=== PATIENT | female | born 1985 | race Asian ===

== ENCOUNTER 2020-04-24 16:44 | Emergency (ER) | payer OTHER ==
[~2020-04-24] VITALS: Ht 160 cm; Wt 62.8 kg
[2020-04-24] MEDS ORDERED: LEVO25TA5 PO (16:56)
--- NOTE | 2020-04-24 17:54 | REP ---
INDICATION: vag bleeding. COMPARISON: None. TECHNIQUE: Transabdominal scanning. The patient declined transvaginal scanning. FINDINGS: Uterine dimensions are somewhat enlarged measured at 10.7 x 5.6 x 6.2 cm. Endometrium measures 1.4 cm. There is a intrauterine small sac-like structure without observable yolk sac or embryonic pole. By mean sac size diameter of 10 mm, this would correspond with a gestational age estimate of 5 weeks 5 days. Neither ovary could be directly visualized. No free fluid is seen. The patient declined transvaginal scanning. IMPRESSION: There is a small 10 mm sac-like structure in the uterine endometrial region which could be an early IUP. No embryonic pole or yolk sac is visible however and viability cannot be confirmed. Findings are somewhat nonspecific. Clinical follow-up and possibly sonographic follow-up may be warranted. 5 week 5 day estimate by mean sac size diameter. <Electronically signed by Tashi Sierra > 04/24/20 [id number]
[2020-04-24 18:10] LABS: BASO # 0.1 10^3/uL (0.0-0.2); BASO % 0.6 % (0.0-1.0); EOS # 0.2 10^3/uL (0.0-0.5); EOS % 1.3 % (0.0-3.0); HEMATOCRIT 40.4 % (36.0-47.0); HEMOGLOBIN 13.4 g/dl (12.0-15.5); LYMPH # 2.5 10^3/uL (1.5-5.0); LYMPH % 19.5 % (24.0-44.0); MEAN CORPUSCULAR HEMOGLOBIN 30.7 pg (27.0-33.0); MEAN CORPUSCULAR HGB CONC 33.2 g/dl (32.0-36.5); MEAN CORPUSCULAR VOLUME 92.7 fl (80.0-96.0); MONO # 0.7 10^3/uL (0.0-0.8); MONO % 5.2 % (0.0-5.0); NEUTROPHILS # 9.2 10^3/uL (1.5-8.5); PLATELET COUNT, AUTOMATED 334 10^3/uL (150-450); RED BLOOD COUNT 4.36 10^6/uL (4.00-5.40); WHITE BLOOD COUNT 12.6 10^3/uL (4.0-10.0)
[2020-04-24 19:18] VITALS: BP 125/80
== END 2020-04-24 19:45 | disposition home or self-care (01) ==
LOC: M ED 16:44
DX: O20.0 Threatened abortion (principal); Z3A.01 Less than 8 weeks gestation of pregnancy; O99.281 Endocrine, nutritional and metabolic diseases complicating pregnancy, first trimester; E03.9 Hypothyroidism, unspecified; Z79.899 Other long term (current) drug therapy

== ENCOUNTER 2020-04-30 08:16 | Emergency (ER) | payer OTHER ==
[~2020-04-30] VITALS: Ht 157.5 cm; Wt 62.7 kg
[~2020-04-30 08:16] MED LIST: LEVO25TA5 PO
[2020-04-30 09:28] LABS: BASO # 0.1 10^3/uL (0.0-0.2); BASO % 0.5 % (0.0-1.0); EOS # 0.1 10^3/uL (0.0-0.5); EOS % 0.6 % (0.0-3.0); HEMOGLOBIN 13.4 g/dl (12.0-15.5); LYMPH # 1.6 10^3/uL (1.5-5.0); LYMPH % 12.8 % (24.0-44.0); MEAN CORPUSCULAR HEMOGLOBIN 30.9 pg (27.0-33.0); MEAN CORPUSCULAR HGB CONC 32.7 g/dl (32.0-36.5); MEAN CORPUSCULAR VOLUME 94.5 fl (80.0-96.0); MONO # 0.5 10^3/uL (0.0-0.8); MONO % 4.3 % (0.0-5.0); NEUTROPHILS # 10.1 10^3/uL (1.5-8.5); NEUTROPHILS % 81.3 % (36.0-66.0); PLATELET COUNT, AUTOMATED 313 10^3/uL (150-450); RED BLOOD COUNT 4.34 10^6/uL (4.00-5.40); WHITE BLOOD COUNT 12.4 10^3/uL (4.0-10.0)
[2020-04-30 10:08] LABS: ALBUMIN 4.1 GM/DL (3.2-5.2); ALT/SGPT 23 U/L (12-78); BILIRUBIN,DIRECT < 0.1 MG/DL (0.0-0.2); BILIRUBIN,TOTAL 0.3 MG/DL (0.2-1.0); BLOOD UREA NITROGEN 10 MG/DL (7-18); CARBON DIOXIDE LEVEL 26 MEQ/L (21-32); CHLORIDE LEVEL 104 MEQ/L (98-107); GLOMERULAR FILTRATION RATE > 60.0 (>60); GLUCOSE, FASTING 107 MG/DL (70-100); HCG, SERUM QUANTITATIVE 6071 MIU/ML; LIPASE 101 U/L (73-393); POTASSIUM SERUM 3.8 MEQ/L (3.5-5.1); SODIUM LEVEL 137 MEQ/L (136-145); TOTAL PROTEIN 7.7 GM/DL (6.4-8.2)
--- NOTE | 2020-04-30 10:14 | REP ---
INDICATION: VAGINAL BLEEDING. COMPARISON: 04/24/2020.. TECHNIQUE: Multiple real-time ultrasonographic images. Patient declined endovaginal imaging. FINDINGS: The uterus is anteverted and upper normal size measuring 9.6 x 4.6 x 6.0 cm. There is a gestational sac like structure in the lower uterine segment with an unusual shape. There is no identifiable yolk sac or pole. This may represent spontaneous in progress. Follow-up is recommended. The right ovary could not be identified. The left ovary is normal size measuring 2.0 x 1.4 x 1.3 cm. There is no dominant left ovarian mass or cyst. There is no free fluid in the pelvis. IMPRESSION: Irregular sac-like structure in the lower uterine segment without an identifiable pole or yolk sac. This may possibly represent spontaneous in progress. Follow-up is recommended. <Electronically signed by Nicholas Javier > 04/30/20 [id number]
[2020-04-30] MEDS ORDERED: ACETAMINOPHEN 500 MG TAB PO ONE (11:15)
[2020-04-30] MEDS ORDERED: KETOROLAC 30 MG/ML 1ML VIAL IV ONE (12:30)
[2020-04-30 13:51] VITALS: BP 108/63
== END 2020-04-30 14:01 | disposition home or self-care (01) ==
LOC: M ED 08:16
DX: O03.9 Complete or unspecified spontaneous abortion without complication (principal); Z3A.01 Less than 8 weeks gestation of pregnancy; E03.9 Hypothyroidism, unspecified; Z79.890 Hormone replacement therapy
CPT/HCPCS: 76801; 80048; 80076; 81001; 83690; 84702; 85025; 86901; 88233; 88262; 88291; 88305; 96374; 99284; J1885

== ENCOUNTER 2020-07-26 09:35 | Emergency (ER) | payer OTHER ==
[~2020-07-26] VITALS: Ht 157.5 cm; Wt 65.0 kg
[2020-07-26 10:24] LABS: HEMATOCRIT 40.5 % (36.0-47.0); HEMOGLOBIN 13.4 g/dl (12.0-15.5); MEAN CORPUSCULAR HEMOGLOBIN 30.8 pg (27.0-33.0); MEAN CORPUSCULAR HGB CONC 33.1 g/dl (32.0-36.5); MEAN CORPUSCULAR VOLUME 93.1 fl (80.0-96.0); PLATELET COUNT, AUTOMATED 306 10^3/uL (150-450); RED BLOOD COUNT 4.35 10^6/uL (4.00-5.40)
[2020-07-26 10:54] LABS: HCG, SERUM QUALITATIVE POSITIVE (NEGATIVE)
--- NOTE | 2020-07-26 11:07 | REP ---
INDICATION: VB/8wkpregr/o ectopic COMPARISON: None. TECHNIQUE: Transabdominal 1st trimester obstetrical ultrasound. FINDINGS: Anteverted uterus measures 9.4 x 5.5 x 5.7 cm and the endometrial complex demonstrates decidual reaction to 17 mm thickness. A gestational sac is identified in the lower uterine segment without pole or yolk sac. Mean sac diameter of 7 mm corresponds to 5 weeks 2 days gestational age. Bilateral maternal ovaries are normal in appearance. No pelvic fluid or adnexal mass lesion identified. IMPRESSION: Findings as described suggest early versus possible spontaneous in progress given the patient's associated vaginal bleeding. Less likely ectopic cannot definitively be excluded. Correlation with serial HCG levels and repeat ultrasound as necessary. <Electronically signed by Reynaldo Bolanos > 07/26/20 [id number]
[2020-07-26 11:21] VITALS: BP 108/68
[2020-07-26 12:01] LABS: HCG, SERUM QUANTITATIVE 3716 MIU/ML
== END 2020-07-26 11:29 | disposition home or self-care (01) ==
LOC: M ED 09:35
DX: O20.0 Threatened abortion (principal); Z3A.01 Less than 8 weeks gestation of pregnancy; O99.281 Endocrine, nutritional and metabolic diseases complicating pregnancy, first trimester; E07.9 Disorder of thyroid, unspecified; Z79.890 Hormone replacement therapy

== ENCOUNTER 2023-12-01 07:17 | Day surgery (SDC) | payer OTHER ==
[~2023-12-01] VITALS: Ht 160 cm; Wt 65.3 kg
[~2023-12-01 07:17] MED LIST changes: +PRENTAB53 PO; +SYNT75TA PO
[2023-12-01 07:43] LABS: HEMOGLOBIN 12.9 g/dl (12.0-15.5)
[2023-12-01] MEDS ORDERED: propofoL 200 MG/20 ML VIAL As Ordered ONE (08:03)
[2023-12-01] MEDS: LR 1,000 ML IV SCH (08:03)
[2023-12-01] MEDS ORDERED: ONDANSETRON 4MG 2ML VIAL As Ordered ONE (08:03)
[2023-12-01] MEDS ORDERED: LIDOCAINE 2% 100MG/5ML SDV (FOR ANES.) As Ordered ONE (08:03)
[2023-12-01] MEDS ORDERED: fentaNYL 100 MCG/2 ML INJECTION As Ordered ONE (08:33)
[2023-12-01] MEDS ORDERED: MIDAZOLAM INJ 2MG/2ML VIAL As Ordered ONE (08:33)
[2023-12-01] MEDS ORDERED: ACETAMINOPHEN 1000MG 100ML IV BAG As Ordered ONE (09:08)
[2023-12-01] MEDS ORDERED: KETOROLAC 60MG 2ML VIAL As Ordered ONE (09:09)
[2023-12-01] MEDS: SILVER NITRATE APPLICATOR (1 = QTY 10) As Ordered ONE (09:30)
[2023-12-01] MEDS: LIDOCAINE 1% SDV 30ML VIAL As Ordered ONE (09:30)
[2023-12-01 09:58] VITALS: TEMP 97.1
[2023-12-01] MEDS ORDERED: oxyCODONE 5MG TAB PO PRN (10:30)
[2023-12-01 12:02] VITALS: BP 109/63; O2SAT 100
== END 2023-12-01 11:25 | disposition home or self-care (01) ==
LOC: M SDC 07:17
PROVIDERS: ATTEND Obstetrics & Gynecology
DX: N85.00 Endometrial hyperplasia, unspecified (principal); N96 Recurrent pregnancy loss; Z87.42 Personal history of other diseases of the female genital tract; Z79.890 Hormone replacement therapy
CPT/HCPCS: 36415; 58558; 81025; 85014; 85018; 88305; J0131; J1100; J1885; J2250; J2405; J3010